=== PATIENT | female | born 1990 | race Caucasian/White ===

== ENCOUNTER 2020-12-05 11:54 | Emergency (ER) | payer BC ==
[2020-12-05 12:49] VITALS: BP 128/95; PULSE 102
[2020-12-05] MEDS ORDERED: EPINEPHrine 1 MG/ML SDV IM PRN (13:03)
[2020-12-05] MEDS ORDERED: Sodium Chloride 0.9% 10 ML Syringe FLUSH PRN (13:03)
[2020-12-05] MEDS ORDERED: Famotidine 20 MG/2 ML SDV IVPUSH PRN (13:03)
[2020-12-05] MEDS ORDERED: diphenhydrAMINE 50 MG/ML SDV IVPUSH PRN (13:03)
[2020-12-05] MEDS ORDERED: methylPREDNISolone Sodium Succinate 125 MG/2 ML SDV IVPUSH PRN (13:03)
--- NOTE | 2020-12-05 13:10 | EDM.PDOC ---
<FeliJamel Avery - Last Filed: 12/05/20 19:30> ED HPI GENERAL MEDICAL PROBLEM - General Chief Complaint: Respiratory Problem Stated Complaint: COVID +/WORSENING SYMPTOMS Time Seen by Provider: 12/05/20 12:29 - Related Data Allergies Allergy/AdvReac Type Severity Reaction Status Date / Time No Known Allergies Allergy Verified 12/05/20 12:50 Home Meds: Home Meds Levothyroxine Sodium [Tirosint] 175 mcg PO 12/05/20 [History] Course - Re-Assessments/Exams Free Text/Narrative Re-Assessment/Exam: 12/05/20 19:31 patient tolerated Regeneron-Cov dual monoclonal antibody therapy infusion without issue and monitored for an hour without any problems. She will therefore be discharged to home. Discharge orders written Departure - Departure Time of Disposition: 19:24 Disposition: Home, Self-Care 01 Condition: Fair Clinical Impression: COVID-19, 2019 novel coronavirus-infected pneumonia (NCIP) - Discharge Information *PRESCRIPTION DRUG MONITORING PROGRAM REVIEWED*: Not Applicable *COPY OF PRESCRIPTION DRUG MONITORING REPORT IN PATIENT KADIE: Not Applicable Instructions: COVID-19 Frequently Asked Questions, Things to Know about the COVID-19 Pandemic - [facility] [place] (06/07/2020), 10 Things You Can Do to Manage Your COVID- 19 Symptoms at Home - [facility] [place] (09/22/2019), COVID-19: Quarantine vs. Isolation - [facility] [place] (03/09/2020) Referrals: PCP,None [Primary Care Provider] - Forms: ED Department Discharge Additional Instructions: Evaluation in the emergency room today in regards to fever, chills, cough and illness suggestive of COVID-19 illness. Your oxygen levels were high enough to allow treatment with monoclonal antibody therapy Regen-Cov. You were therefore treated with dual monoclonal antibody infusion over an hour and watch for an hour for adverse effects and none were identified. The treatment plan is giving you immediate immunity to the COVID-19 virus in the hopes of preventing worsening of your COVID-19 illness and pneumonia. Chest x-ray does reveal early Covid viral pneumonia in both lower lobes of your lungs. You are considered contagious to others for a minimum of 12 days from the time you developed onset of symptoms such as fever, headache, sore throat etc. Continue Motrin 600 mg every 6 hours as needed for fever and body ache and headache relief. Try and take in as much fluids as possible particularly fluids like Gatorade or Powerade which are identical to IV fluids. Diet as tolerated. You would need to return to medical care if your oxygen levels become lower. Pulse oximetry reading should be obtained 4 times daily and if they are staying at 88% for 2 con secutive hours she would need to return to the hospital for alternative treatments for COVID-19 illness and potential admission to hospital. <Ariana Green M - Last Filed: 12/08/20 11:07> ED HPI GENERAL MEDICAL PROBLEM - General Source of Information: Reports: Patient History Limitations: Reports: No Limitations - History of Present Illness INITIAL COMMENTS - FREE TEXT/NARRATIVE: 30-year-old female presents the emergency department with complaints of worsening Covid symptoms. Patient states she developed symptoms of cough, shortness of breath, nausea, abdominal discomfort and headache 4 days ago. She states she went to the walk-in clinic yesterday and tested positive for Covid. She states that today she had 1 diarrhea stool and feels as though she has becoming dehydrated and more short of breath, so presented to the emergency department. She states she does have a history of hypothyroidism and her primary care provider is Cecilia Andujar. Abdomen Pain Score (Numeric/FACES): 2 Past Medical History Other Endocrine/Metabolic History: Hypothyroidism ED ROS GENERAL - Review of Systems Review Of Systems: Comprehensive ROS is negative, except as noted in HPI. ED EXAM, GENERAL - Physical Exam Exam: See Below Exam Limited By: No Limitations General Appearance: Alert, WD/WN, No Apparent Distress Ears: Normal External Exam, Hearing Grossly Normal Nose: Normal Inspection Throat/Mouth: Normal Inspection, Normal Lips, Normal Voice, No Airway Compromise Head: Atraumatic Neck: Normal Inspection, Supple Respiratory/Chest: No Respiratory Distress, Normal Breath Sounds, No Accessory Muscle Use, Chest Non-Tender, Crackles (Fine crackles noted to the right posterior lower lobe) Cardiovascular: Normal Peripheral Pulses, Regular Rate, Rhythm, No Edema, No Murmur Peripheral Pulses: 2+: Radial (L), Radial (R) GI/Abdominal: Normal Bowel Sounds, Soft, Non-Tender, No Distention (Female) Exam: Deferred Rectal (Female) Exam: Deferred Back Exam: Normal Inspection, Full Range of Motion Extremities: Normal Inspection Neurological: Alert, Oriented, Normal Cognition Psychiatric: Normal Affect, Normal Mood Skin Exam: Warm, Dry, Intact, Normal Color, No Rash Lymphatic: No Adenopathy Course - Vital Signs Text/Narrative:: As stated above, patient presents due to worsening Covid symptoms. Upon exam, the patient is hemodynamically stable. She does have a low-grade temp of 100.8 and she is mildly tachycardic at 102 beats a minute. Physical exam is unremarkable other than fine crackles noted to the right posterior lower lobe. Patient states that her appetite is decreased and she feels as though she is becoming dehydrated. We will obtain portable chest x-ray as well as lab studies. I do believe that this patient is also a candidate for monoclonal antibody treatment, Regeneron. I spoke with the patient to provide information about Regeneron treatment for herself. I offered her the patient and caregiver Regeneron fax sheet to read and review. I stated the drug has been approved by an emergency use authorization process and has not been fully FDA approved or reviewed. The patient meets the EUA requirements. I discussed there are other potential treatment options that are currently not FDA approved to treat COVID-19. Offered opportunity to ask questions and all questions were answered. The patient voiced understanding and agreed to proceed with the treatment for herself. Last Recorded V/S: Last Vital Signs Temp 100.8 F H 12/05/20 12:44 Pulse 102 H 12/05/20 12:44 Resp 20 12/05/20 12:44 BP 128/95 H 12/05/20 12:44 Pulse Ox 95 12/05/20 12:44 - Orders/Labs/Meds Labs: Laboratory Tests 12/05/20 12/05/20 12/05/20 Range/Units 14:55 14:55 14:55 WBC 2.84 L (3.98-10.04) K/mm3 RBC 4.91 (3.98-5.22) M/mm3 Hgb 13.8 (11.2-15.7) gm/dl Hct 42.1 (34.1-44.9) % MCV 85.7 (79.4-94.8) fl MCH 28.1 (25.6-32.2) pg MCHC 32.8 (32.2-35.5) g/dl RDW Std Deviation 42.9 (36.4-46.3) fL Plt Count 203 D (182-369) K/mm3 MPV 9.6 (9.4-12.3) fl Neut % (Auto) 60.2 (34.0-71.1) % Lymph % (Auto) 28.5 (19.3-51.7) % [place] % (Auto) 10.9 (4.7-12.5) % Eos % (Auto) 0 L (0.7-5.8) Baso % (Auto) 0.4 (0.1-1.2) % Neut # (Auto) 1.71 (1.56-6.13) K/mm3 Lymph # (Auto) 0.81 L (1.18-3.74) K/mm3 [place] # (Auto) 0.31 (0.24-0.36) K/mm3 Eos # (Auto) 0.00 L (0.04-0.36) K/mm3 Baso # (Auto) 0.01 (0.01-0.08) K/mm3 D-Dimer, Quantitative 0.53 H (0.19-0.50) mg/L Sodium 135 L (136-145) mEq/L Potassium 4.1 (3.5-5.1) mEq/L Chloride 99 (98-107) mEq/L Carbon Dioxide 26 (21-32) mEq/L Anion Gap 14.1 (5-15) BUN 11 (7-18) mg/dL Creatinine 1.0 (0.55-1.02) mg/dL Est Cr Clr Drug Dosing 63.88 mL/min Estimated GFR (MDRD) > 60 (>60) mL/min BUN/Creatinine Ratio 11.0 L (14-18) Glucose 92 (70-99) mg/dL Calcium 8.5 (8.5-10.1) mg/dL Magnesium 1.9 (1.8-2.4) mg/dL Total Bilirubin 0.3 (0.2-1.0) mg/dL AST 21 (15-37) U/L ALT 21 (14-59) U/L Alkaline Phosphatase 76 (46-116) U/L C-Reactive Protein 1.9 H* (<1.0) mg/dL Total Protein 8.2 (6.4-8.2) g/dl Albumin 3.8 (3.4-5.0) g/dl Globulin 4.4 gm/dL Albumin/Globulin Ratio 0.9 L (1-2) Meds: Medications Discontinued Medications Generic Name Dose Route Start Last Admin Trade Name Freq PRN Reason Stop Dose Admin Diphenhydramine HCl 50 mg 12/05/20 13:03 Diphenhydramine 50 Mg/Ml Sdv IVPUSH ONETIME PRN hypersensitivity reaction Epinephrine HCl 0.3 mg 12/05/20 13:03 Epinephrine 1 Mg/Ml Sdv IM ONETIME PRN hypersensitivity reaction Famotidine 20 mg 12/05/20 13:03 Famotidine 20 Mg/2 Ml Sdv IVPUSH ONETIME PRN hypersensitivity reaction CASIRIVIMAB/IMDEVIMAB 10 ml/ 110 mls @ 220 mls/hr 12/05/20 13:03 12/05/20 17:08 Sodium Chloride IV 12/05/20 13:32 220 mls/hr ONETIME ONE Administration Methylprednisolone Sodium Succinate 125 mg 12/05/20 13:03 Methylprednisolone Sodium Succinate 125 Mg/2 Ml Sdv IVPUSH ONETIME PRN hypersensitivity reaction Sodium Chloride 30 ml 12/05/20 13:15 Sodium Chloride 0.9% 10 Ml Syringe FLUSH ASDIRECTED BINTA Sodium Chloride 10 ml 12/05/20 13:03 Sodium Chloride 0.9% 10 Ml Syringe FLUSH ASDIRECTED PRN Keep Vein Open - Re-Assessments/Exams Free Text/Narrative Re-Assessment/Exam: 12/05/20 14:14 Radiologist impression frontal view of the chest: 1. Small area of increased density is seen within the right lung base either due to Covid pneumonia or other pneumonia. 2. Slight atelectasis within the left lung base. 12/05/20 16:01 Nursing staff notifies me that they are unable to get an IV site established with the patient. They will continue to try and the patient will receive for Regeneron infusion once this has been completed. 12/05/20 16:28 Hematology reveals a WBC of 2.84, hemoglobin 13.8, hematocrit 42.1, platelet count 203 D-dimer 0.53 Chemistry reveals a sodium of 135, potassium 4.1, carbon dioxide 26, anion gap 14.1, BUN 11, creatinine 1.0, glucose 92, magnesium 1.9, C-reactive protein 1.9 Sepsis Event Note (ED) - Evaluation Sepsis Screening Result: No Definite Risk
[2020-12-05] MEDS ORDERED: Sodium Chloride 0.9% 10 ML Syringe FLUSH SCH (13:15)
--- NOTE | 2020-12-05 13:48 | CR ---
Chest: Frontal view of the chest was obtained. Comparison: No prior chest imaging is available. Patchy increased density within the right lung base is seen. Area of atelectasis is seen within the left lung base. Lungs otherwise are clear. Heart size and mediastinum are within normal limits. No acute osseous abnormality is appreciated. Impression: 1. Small area of increased density is seen within the right lung base either due to COVID pneumonia or other pneumonia. 2. Slight atelectasis within the left lung base. Diagnostic code #3
== END 2020-12-05 19:40 | disposition home or self-care (01) ==
LOC: JD.ED 11:54
DX: U07.1 COVID-19 (principal); J12.82 Pneumonia due to coronavirus disease 2019; E03.9 Hypothyroidism, unspecified; Z79.899 Other long term (current) drug therapy
CPT/HCPCS: 36415; 71045; 80053; 83735; 85025; 85379; 86140; 99283; M0243; Q0243; 99284